=== PATIENT | female | born 1975 | race African-American/Black ===

== ENCOUNTER 2018-03-30 06:54 | Emergency (ER) | payer BC ==
[~2018-03-30] VITALS: Ht 162.6 cm; Wt 124.3 kg
--- OUTSIDE RECORDS SUMMARY | 2018-03-30 06:56 | XMS REPORT ---
Author Author [facility] Address Unknown Phone Unavailable Care Team Providers Care Activities Attendant Name Role Phone Magdy GARCIA Unavailable Unavailable Problems This patient has no known problems. Allergies, Adverse Reactions, Alerts This patient has no known allergies or adverse reactions. Medications This patient has no known medications. Results Test Description Test Time Test Comments Text Results Atomic Results Result Comments CHEST SINGLE (PORTABLE) 2018-03-29 21:59:00 [place] [address] Patient Name: EDGAR COVARRUBIAS MR #: [id number] : 1975 Age/Sex: 43/F Req #: [id number] Adm Physician: Ordered by: PADMA GARCIA MD Report #: [id number] Location: ER Room/Bed: Procedure: [id number] DX/CHEST SINGLE (PORTABLE) Exam Date: 03/29/18 Exam Time: 2100 REPORT STATUS: Signed EXAMINATION: CHEST SINGLE (PORTABLE) INDICATION: CHEST PAIN COMPARISON: None FINDINGS: AP view TUBES and LINES: None. LUNGS: Lungs are well inflated. Lungs are clear. There is no evidence of pneumonia or pulmonary edema. PLEURA: No pleural effusion or pneumothorax. HEART AND MEDIASTINUM: The cardiomediastinal silhouette is unremarkable. BONES AND SOFT TISSUES: No acute osseous lesion. Soft tissues are unremarkable. UPPER ABDOMEN: No free air under the diaphragm. IMPRESSION: No acute thoracic abnormality. Signed by: DR. Asad Lucio MD on 03/29/2018 10:00 PM Dictated By: ASAD LUCIO MD 99 Transcribed By: ROMAINE on 03/29/182199 COPY TO: PADMA GARCIA MD
--- OUTSIDE RECORDS SUMMARY | 2018-03-30 06:56 | XMS REPORT | Clinical Summary ---
[facility] Address Unknown Phone Unavailable Care Team Providers Care Packer Insulation Name Role Phone Trina Mahajan MD PCP Allergies No Known Allergies Medications No known medications Active Problems No known active problems Family History Medical History Relation Name Comments No Known Problems Father No Known Problems Mother Relation Name Status Comments Father Mother Alive Social History Date Tobacco Use Types Packs/Day Years Used Never Smoker Smokeless Tobacco: Never Used Alcohol Use Drinks/Week oz/Week Comments Yes socially Sex Assigned at Date Recorded Not on file Industry Job Start Date Occupation Not on file Not on file Not on file Travel End Travel History Travel Start No recent travel history available. Last Filed Vital Signs Not on file Plan of Treatment Health Maintenance Due Date Last Done Comments CERVICAL CANCER SCREENING 1998 INFLUENZA VACCINE 10/24/2017 Implants Device Identifier Shelf Expiration Date Model / Serial / Lot Implanted Type Area Manufactur er TVTRL / / System Contnc Rtrpbc Gynecare Tvt Urological N/A: N/A GYNECARE Exact - [id number] Implants Implanted: Qty: 1 on 12/12/2016 by or Shireen Mak MD Results Not on fileafter 03/29/2017 Insurance Payer Benefit Subscriber ID Type Phone Address Plan / Group BCBS BCBS xxxxxxxxx PPO CHOICE PPO/[employer] PPO [phone] (Work) Advance Directives Patient has advance care planning documents on file. For more information, minda alarcon contact: Skyler Tejada [address] [place] [address]
[2018-03-30] MEDS ORDERED: HYDROCHLOROTHIA25 MG PO (07:04)
[2018-03-30] MEDS ORDERED: AMLODIPINE BESYL5 MG PO (07:04)
--- NOTE | 2018-03-30 07:57 | Diagnostic Imaging Report ---
Examination: CT head without contrast Clinical Indication: Numbness and tingling for a few days. Technique: Transaxial noncontrast images from the skull base through the vertex were obtained. Sagittal and coronal reformatted images were done. Dose modulation, iterative reconstruction, and/or weight based adjustment of the mA/kV was utilized to reduce the radiation dose to as low as reasonably achievable. Comparison: None. Findings: Scalp: A 1.5cm midline parietal scalp lesion toward the vertex is identified and likely represents a sebaceous cyst. Bones: Intact. No fractures. No blastic or lytic lesions. Brain sulci: Appropriate for patient's age. Ventricles: Normal in size and configuration. No hydrocephalus. Extra-axial space: No abnormalities. Parenchyma: No abnormal densities. No masses, hemorrhage, or acute or chronic cortical based vascular insults. Suprasellar region: No abnormalities. Craniocervical junction: The foramen magnum is patent. No Chiari one malformation. Impression: No acute intracranial abnormality. Signed by: Dr. María Elena Raya M.D. on 03/30/2018 7:54 AM
[2018-03-30 08:45] VITALS: BP 142/90
== END 2018-03-30 09:04 | disposition home or self-care (01) ==
LOC: ER 06:54
DX: R20.2 Paresthesia of skin (principal); R42 Dizziness and giddiness; I10 Essential (primary) hypertension
CPT/HCPCS: 70450; 99283